=== PATIENT | female | born 1940 | race Caucasian/White ===

== ENCOUNTER 2020-12-06 04:03 | Emergency (ER) | payer MEDICARE ==
[~2020-12-06 04:03] MED LIST: NEURONTIN300 MG PO; OXYCODONE-ACET1 EAC1 PO; PREGABALIN50 MG PO; VOLTAREN100 GM TOP
[2020-12-06] MEDS ORDERED: CLEOCIN300 MG PO (05:18)
[2020-12-11] MEDS ORDERED: OXYCODONE-ACET1 EAC1 PO (15:36)
== END 2020-12-06 05:39 | disposition home or self-care (01) ==
LOC: FER 04:03
DX: S81.851A Open bite, right lower leg, initial encounter (principal); I50.9 Heart failure, unspecified; J44.9 Chronic obstructive pulmonary disease, unspecified; Z88.0 Allergy status to penicillin; Z79.899 Other long term (current) drug therapy; Z85.3 Personal history of malignant neoplasm of breast; W55.01XA Bitten by cat, initial encounter
CPT/HCPCS: 99283

== ENCOUNTER 2021-06-16 14:55 | Emergency (ER) | payer MEDICARE ==
[~2021-06-16 14:55] MED LIST changes: +CLEOCIN300 MG PO; +NEURONTIN 400M400 MG PO; +TRAZODONE 50MG50 MG PO
[2021-06-16 18:52] LABS: BASOPHIL 0.4 % (0-2); EOSINOPHIL 0.6 % (0-7); HCT 42.8 % (37.0-47.0); HGB 13.5 g/dl (12.5-16.0); LYMPHOCYTE 25.9 % (15-48); MCH 31.3 pg (25.0-31.0); MCHC 31.5 g/dL (32.0-36.0); MCV 99.1 fL (78.0-100.0); MONOCYTE 9.1 % (0-12); MPV 9.7 fL (6.0-9.5); NEUTROPHIL 63.3 % (41-80); NRBC 0; PLT 186 K/uL (150-400); RBC 4.32 M/uL (4.20-5.40); RDW 12.9 % (11.5-14.0); WBC 9.5 K/uL (4.0-10.5)
[2021-06-16 18:53] LABS: BILIRUBIN NEGATIVE (NEGATIVE); BLOOD TRACE-INTACT Ery/uL (NEGATIVE); CLARITY CLEAR (CLEAR); COLOR YELLOW (YELLOW); GLUCOSE (U) NORMAL (NORMAL); LEUKOCYTES 1+ Leu/uL (NEGATIVE); NITRITE NEGATIVE (NEGATIVE); PROTEIN NEGATIVE (NEGATIVE); UROBILINOGEN 0.2 mg/dL (0.2-1.0); pH 6.5 (5.0-9.0)
[2021-06-16 18:57] LABS: INR 0.95 (0.9-1.2); PROTHROMBIN TIME 12.1 SECONDS (11.8-13.4); PTT 23.7 SECONDS (24.4-34.7)
[2021-06-16 18:59] LABS: BACTERIA TRACE; SQUAMOUS EPITHELIAL CELLS RARE; URINARY RBC RARE
[2021-06-16 19:17] LABS: ALBUMIN 3.5 g/dL (3.4-5.0); BILIRUBIN - TOTAL 0.3 mg/dL (0.2-1.0); BUN/CREAT RATIO (CALC) 15.2 RATIO; CREATININE 0.99 mg/dL (0.51-0.95); D-DIMER 15.36 ug/mLFEU (0.00-0.41); GLOBULIN (CALCULATION) 3.4 g/dL; POTASSIUM 3.5 mmol/L (3.5-5.1); TOTAL PROTEIN 6.9 g/dL (6.4-8.2)
[2021-06-16 19:39] LABS: CORONAVIRUS 2019 SARS-COV-2 NEGATIVE (NEGATIVE); INFLUENZA A NAA NEGATIVE (NEGATIVE)
[2021-06-16] MEDS ORDERED: ELIQUIS5 MG PO ×2 (22:30→22:53)
== END 2021-06-16 22:49 | disposition home or self-care (01) ==
LOC: FER 14:55
PROVIDERS: Emergency Medicine
DX: I82.412 Acute embolism and thrombosis of left femoral vein (principal); J44.9 Chronic obstructive pulmonary disease, unspecified; N18.9 Chronic kidney disease, unspecified; E66.9 Obesity, unspecified; Z20.822 Contact with and (suspected) exposure to COVID-19; Z99.81 Dependence on supplemental oxygen; Z88.0 Allergy status to penicillin
CPT/HCPCS: 36415; 36600; 71045; 71275; 80053; 81001; 82803; 83880; 84484; 85025; 85379; 85610; 85730; 87088; 93005; 93970; 94640; Q9967; U0002

== ENCOUNTER 2021-12-05 13:57 | Emergency (ER) | payer MEDICARE ==
[~2021-12-05 13:57] MED LIST changes: +3IN1 COMMODE XX; +ELIQUIS5 MG PO; +OXYCODON-ACETA1 EAC1 PO
[2021-12-05 14:38] LABS: BASOPHIL 0.6 % (0-2); EOSINOPHIL 0.9 % (0-7); HCT 41.3 % (37.0-47.0); HGB 13.2 g/dl (12.5-16.0); LYMPHOCYTE 27.7 % (15-48); MCH 31.1 pg (25.0-31.0); MCV 97.4 fL (78.0-100.0); MONOCYTE 9.7 % (0-12); MPV 10.4 fL (6.0-9.5); NEUTROPHIL 60.8 % (41-80); NRBC 0; PLT 199 K/uL (150-400); RBC 4.24 M/uL (4.20-5.40)
[2021-12-05 15:32] LABS: CORONAVIRUS 2019 SARS-COV-2 NEGATIVE (NEGATIVE); INFLUENZA A NAA NEGATIVE (NEGATIVE)
[2021-12-05 15:53] LABS: BILIRUBIN - TOTAL 0.3 mg/dL (0.2-1.0); BUN/CREAT RATIO (CALC) 13.3 RATIO; CREATININE 0.9 mg/dL (0.51-0.95); POTASSIUM 3.4 mmol/L (3.5-5.1)
[2021-12-05 16:29] LABS: BILIRUBIN NEGATIVE (NEGATIVE); BLOOD NEGATIVE Ery/uL (NEGATIVE); CLARITY CLEAR (CLEAR); COLOR YELLOW (YELLOW); GLUCOSE (U) NORMAL (NORMAL); LEUKOCYTES NEGATIVE Leu/uL (NEGATIVE); NITRITE NEGATIVE (NEGATIVE); PROTEIN NEGATIVE (NEGATIVE); UROBILINOGEN 0.2 mg/dL (0.2-1.0); pH 7.5 (5.0-9.0)
== END 2021-12-05 21:00 | disposition home or self-care (01) ==
LOC: FER 13:57
PROVIDERS: Physician Assistant
DX: R07.89 Other chest pain (principal); M79.605 Pain in left leg; M79.604 Pain in right leg; R22.43 Localized swelling, mass and lump, lower limb, bilateral; I10 Essential (primary) hypertension; J44.9 Chronic obstructive pulmonary disease, unspecified; E78.5 Hyperlipidemia, unspecified; Z88.0 Allergy status to penicillin; Z79.899 Other long term (current) drug therapy; Z20.822 Contact with and (suspected) exposure to COVID-19
CPT/HCPCS: 36415; 71045; 80053; 81003; 83880; 84145; 84484; 85025; 93005; 93970; U0002